=== PATIENT | male | born 1930 | race Caucasian/White ===

== ENCOUNTER 2017-01-28 02:16 | Emergency (ER) | payer MEDICARE, BC ==
[~2017-01-28] VITALS: Ht 162.6 cm; Wt 72.0 kg
[~2017-01-28 02:16] MED LIST: ASPI1TAB69 PO; ATAC16TA4 PO; EFFE10TA PO; MULTTAB67 PO; OMEP40CA2 PO; PLAV75TA29 PO; SIMV40TA PO; TAZT180C PO
[2017-01-28 02:24] VITALS: BP 199/93; PULSE 65; RESP 16; TEMP 98.7; O2SAT 96
[2017-01-28] MEDS ORDERED: SODIUM CHLORIDE 0.9% FLUSH 10 ML FLUSH IVF PRN (02:30)
[2017-01-28] MEDS ORDERED: ATEN50TA7 PO (02:39)
[2017-01-28] MEDS ORDERED: MAGN400T2 PO (02:39)
[2017-01-28] MEDS ORDERED: ASPI81CH37 CHEW (02:39)
[2017-01-28] MEDS ORDERED: ISOS60TA PO (02:39)
[2017-01-28] MEDS ORDERED: VITA100036 PO (02:39)
[2017-01-28 02:47] VITALS: RESP 22; O2SAT 97
[2017-01-28 03:10] LABS: AUTOMATED NEUTROPHIL # 5.5 TH/MM3 (1.8-7.7); BASOPHIL # 0.1 TH/MM3 (0-0.2); BASOPHIL % 0.5 % (0.0-2.0); EOSINOPHIL # 0.3 TH/MM3 (0-0.4); EOSINOPHIL % 2.8 % (0.0-4.0); HEMATOCRIT 39.1 % (39.0-51.0); HEMO FLAGS DIFF FINAL; LYMPHOCYTE # 2.4 TH/MM3 (1.0-4.8); MEAN CELL VOLUME 84.3 FL (80.0-100.0); MEAN CORPUSCULAR HEMOGLOBIN 27.9 PG (27.0-34.0); NEUT % 58.7 % (16.0-70.0); PLATELET COUNT 249 TH/MM3 (150-450); RED BLOOD COUNT 4.63 MIL/MM3 (4.50-5.90); WHITE BLOOD COUNT 9.4 TH/MM3 (4.0-11.0)
[2017-01-28 03:23] LABS: ANION GAP 10 MEQ/L (5-15); BLOOD UREA NITROGEN 11 MG/DL (7-18); CHLORIDE 95 MEQ/L (98-107); GLOMERULAR FILTRATION RATE 73 ML/MIN (>89); POTASSIUM 3.3 MEQ/L (3.5-5.1); SODIUM (NA) 134 MEQ/L (136-145)
--- NOTE | 2017-01-28 03:39 | PD ---
HPI Chief Complaint: Neuro Symptoms/ Deficits Time Seen by Provider: 02:25 Travel History International Travel<30 days: No Contact w/Intl Traveler<30days: No Traveled to known affect area: No History of Present Illness HPI Patient is a 86-year-old male who presents emergency Department with complaint of neuro symptoms. Patient states that he had a TIA approximately one year ago. He had of vertigo with this, difficulty walking. Describes an ataxic type sensation ambulating to the right. Patient has been on Plavix and aspirin since. States he's been doing well. He woke up in the middle the night, approximately midnight to 1 AM try to urinate. Patient states ED he felt "off balance" and describes a sensation similar to his previous TIA. It certainly was not that severity. Patient states that he feels like he wants to lean her walk to the right but has not however had any difficulty walking and no vertigo sensation. No word finding difficulties, speech slurring, or other neurologic deficit. PFSH Past Medical History Arthritis: No Asthma: No Autoimmune Disease: No Anxiety: No Depression: No Heart Rhythm Problems: Yes Cancer: Yes (protate w/ sx) Cardiovascular Problems: Yes (PACERMAKER ) High Cholesterol: Yes Chemotherapy: No Chest Pain: Yes Congestive Heart Failure: No COPD: No Cerebrovascular Accident: No Diabetes: No Diminished Hearing: Yes Endocrine: No Gastrointestinal Disorders: Yes (Ramires's Esophagus) GERD: Yes Genitourinary: Yes Hiatal Hernia: Yes Hypertension: Yes Immune Disorder: No Kidney Stones: No Musculoskeletal: No Neurologic: No Psychiatric: No Reproductive: No Respiratory: No Migraines: No Myocardial Infarction: Yes ("HEART EVENTS") Radiation Therapy: No Renal Failure: No Seizures: No Sickle Cell Disease: No Sleep Apnea: No Thyroid Disease: Yes Ulcer: No Past Surgical History Abdominal Surgery: Yes AICD: No Arteriovenous Shunt: No Body Medical Devices: PACEMAKER Cardiac Surgery: Yes (PACER) Cholecystectomy: Yes Ear Surgery: No Endocrine Surgery: No Eye Surgery: Yes (cat,sx bilateral) Genitourinary Surgery: Yes (prostate sx/ PROSTECTOMY) Insulin Pump: No Joint Replacement: No Oral Surgery: No Pacemaker: Yes Prostatectomy: Yes (2000) Thoracic Surgery: No Other Surgery: Yes (cholecystectomy) Social History Alcohol Use: Yes (DAILY) Tobacco Use: No Substance Use: No Allergies-Medications (Allergen,Severity, Reaction): Coded Allergies: Levaquin (Verified Allergy, Severe, 08/12/16) RAISED BLOOD PRESSURE Penicillin (Verified Allergy, Unknown, 08/12/16) MRI PRECAUTION (Verified Adverse Reaction, Severe, PACEMAKER, 08/12/16) NON REVO PACEMAKER Diovan (Verified Adverse Reaction, Mild, Increased Blood Pressure, 08/12/16 ) Reported Meds & Prescriptions Reported Meds & Active Scripts Active Reported Clonidine (Clonidine HCl) 0.1 Mg Tab 0.1 Mg PO BID Vitamin D3 (Cholecalciferol) 1,000 Unit Cap 1,000 Units PO DAILY Aspirin Low Dose (Aspirin) 81 Mg Chew 81 Mg CHEW DAILY Magnesium Oxide 400 Mg Tab 400 Mg PO DAILY Atenolol-Chlorthalidone 50-25 Mg Tab 1 Tab PO DAILY Isosorbide Mononitrate ER (Isosorbide Mononitrate) 60 Mg Tab 60 Mg PO DAILY Multiple Vitamin 1 Tab 1 Tab PO DAILY Omeprazole 40 Mg Cap 40 Mg PO DAILY Effer-K (Potassium Bicarbonate-Citric Acid) 10 Meq Tab 1 Tab PO DAILY Taztia Xt (Diltiazem ER 24 HR) 180 Mg Caper 180 Mg PO DAILY Simvastatin 40 Mg Tab 40 Mg PO HS Plavix (Clopidogrel Bisulfate) 75 Mg Tab 75 Mg PO DAILY Review of Systems Except as stated in HPI: all other systems reviewed are Neg Physical Exam Narrative GENERAL: Pleasant elderly male in no acute distress SKIN: Focused skin assessment warm/dry. HEAD: Normocephalic. EYES: No scleral icterus. No injection or drainage. ENT: No nasal bleeding or discharge. Mucous membranes pink and moist. NECK: Supple CARDIOVASCULAR: Regular rate and rhythm. No murmur appreciated. RESPIRATORY: No accessory muscle use. Clear to auscultation. Breath sounds equal bilaterally. GASTROINTESTINAL: Abdomen soft, non-tender, nondistended. MUSCULOSKELETAL: No obvious deformities. No edema. NEUROLOGICAL: Awake and alert. No obvious cranial nerve deficits. Motor grossly within normal limits. Normal speech. Normal gait. Patient is unable to do tandem gait, though states he has never been able to do so, no appreciable ataxia on [id number] heel garcia. PSYCHIATRIC: Appropriate mood and affect; insight and judgment normal. Data Data Last Documented VS Vital Signs Date Time Temp Pulse Resp B/P Pulse Ox O2 Delivery O2 Flow Rate FiO2 01/28/17 03:59 61 17 161/71 97 Room Air 01/28/17 02:24 98.7 Orders Electrocardiogram (01/28/17 02:25) Complete Blood Count With Diff (01/28/17 02:25) Basic Metabolic Panel (Bmp) (01/28/17 02:25) Troponin I (01/28/17 02:25) Ct Brain W/O Iv Contrast(Rout) (01/28/17 02:25) Cta Brain W Iv Contrast W 3d (01/28/17 02:25) Cta Neck W Iv Contrast W 3d (01/28/17 02:25) Ecg Monitoring (01/28/17 02:25) Iv Access Insert/Monitor (01/28/17 02:25) Oximetry (01/28/17 02:25) Sodium Chloride 0.9% Flush (Ns Flush) (01/28/17 02:30) Potassium Chloride (Kcl) (01/28/17 03:45) Iohexol 350 Inj (Omnipaque 350 Inj) (01/28/17 03:47) Labs Laboratory Tests Test 01/28/17 02:30 White Blood Count 9.4 TH/MM3 Red Blood Count 4.63 MIL/MM3 Hemoglobin 12.9 GM/DL Hematocrit 39.1 % Mean Corpuscular Volume 84.3 FL Mean Corpuscular Hemoglobin 27.9 PG Mean Corpuscular Hemoglobin 33.0 % Concent Red Cell Distribution Width 14.0 % Platelet Count 249 TH/MM3 Mean Platelet Volume 8.4 FL Neutrophils (%) (Auto) 58.7 % Lymphocytes (%) (Auto) 25.0 % Monocytes (%) (Auto) 13.0 % Eosinophils (%) (Auto) 2.8 % Basophils (%) (Auto) 0.5 % Neutrophils # (Auto) 5.5 TH/MM3 Lymphocytes # (Auto) 2.4 TH/MM3 Monocytes # (Auto) 1.2 TH/MM3 Eosinophils # (Auto) 0.3 TH/MM3 Basophils # (Auto) 0.1 TH/MM3 CBC Comment DIFF FINAL Differential Comment Sodium Level 134 MEQ/L Potassium Level 3.3 MEQ/L Chloride Level 95 MEQ/L Carbon Dioxide Level 29.0 MEQ/L Anion Gap 10 MEQ/L Blood Urea Nitrogen 11 MG/DL Creatinine 0.97 MG/DL Estimat Glomerular Filtration 73 ML/MIN Rate Random Glucose 113 MG/DL Calcium Level 8.8 MG/DL Troponin I LESS THAN 0.02 NG/ML MDM Medical Decision Making Medical Screen Exam Complete: Yes Emergency Medical Condition: Yes Medical Record Reviewed: Yes Differential Diagnosis 86-year-old male with history of previous TIA here with complaint of gait instability, sensation of wanting to walk to the right. Differential includes CVA, TIA, ICH, ataxia, electrolyte abnormality Narrative Course Patient placed on monitor, IV established and blood obtained. A twelve-lead EKG shows electronically paced rhythm. No notable ST abnormalities. CBC, BMP, troponin obtained and notable for potassium 3.3. Replaced with [address] of the brain and CTA of the brain and neck obtained and showed degenerative changes but otherwise no acute abnormalities. Patient was able ambulate in the emergency department independently, feels back to baseline at this time. Question whether he did have another small TIA. He is anticoagulated on Plavix and aspirin and at this point hospital stay would likely not add much to patient 's therapy. This was discussed with him and he would like to go home. I think that this is reasonable. Patient discharged. We'll encourage outpatient primary follow-up. Diagnosis Primary Impression: Ataxia Referrals: Neurologist 1 week Primary Care Physician 1 week Additional Instructions: Continue home medications as prescribed. Follow-up with primary care provider, neurologist as discussed. Med/Other Pt SpecificInfo: No Change to Meds Disposition: 01 DISCHARGE HOME Condition: Stable Smiley Ramirez MD Jan 28, 2017 03:39
[2017-01-28] MEDS ORDERED: POTASSIUM CHLORIDE 20 MEQ CONTROLLED RELEASE TAB PO ONE (03:45)
[2017-01-28] MEDS ORDERED: IOHEXOL 350 MG/ML 10 ML VIAL (for RAD DIAG) IV ONE (03:47)
[2017-01-28 03:59] VITALS: BP 161/71; PULSE 61; RESP 17; O2SAT 97
[2017-01-28] MEDS ORDERED: CLON0.1T PO (04:04)
--- NOTE | 2017-01-28 04:12 | RADRPT ---
EXAM DATE/TIME: 01/28/2017 03:39 [facility] COMPARISON: CT BRAIN W/O CONTRAST, March 07, 2016, 17:10. INDICATIONS : Unstead gait. RADIATION DOSE: 56.35 CTDIvol (mGy) MEDICAL HISTORY : Cerebrovascular disease. Hypertension. Carcinoma, prostate. SURGICAL HISTORY : None. ENCOUNTER: Initial ACUITY: 1 day PAIN SCALE: 0/10 LOCATION: cranial TECHNIQUE: Multiple contiguous axial images were obtained of the head. Using automated exposure control and adj ustment of the mA and/or kV according to patient size, radiation dose was kept as low as reasonably a chievable to obtain optimal diagnostic quality images. DICOM format image data is available electro nically for review and comparison. FINDINGS: There is no evidence of acute cortical infarction, acute hemorrhage, mass effect or midline shift. Bi frontal atrophy is present. Posterior fossa structures are unremarkable. There is benign-appearing mu cosal disease in the right maxillary sinus. CONCLUSION: 1. Frontal atrophy. No evidence of acute intracranial pathology. No masses are identified. Kamran Perez MD on January 28, 2017 at 4:09 Board Certified Radiologist. This report was verified electronically.
--- NOTE | 2017-01-28 05:10 | RADRPT ---
EXAM DATE/TIME: 01/28/2017 03:39 [facility] COMPARISON: CTA BRAIN W 3D RECON, March 06, 2016, 12:40. INDICATIONS : Unsteady gait. IV CONTRAST: 80 cc Omnipaque 350 (iohexol) IV ; Cumulative dose for multiple exams. RADIATION DOSE: 15.97 CTDIvol (mGy) ; Combined studies MEDICAL HISTORY : Cerebrovascular disease. Hypertension. Carcinoma, prostate. SURGICAL HISTORY : None. ENCOUNTER: Initial ACUITY: 1 day PAIN SCALE: 0/10 LOCATION: cranial TECHNIQUE: Volumetric scanning was performed using a multi-row detector CT scanner. The data was post processed with a variety of visualization algorithms including full volume maximum intensity projection, multi -planar sliding thin slab reformation, curved planar reformation, and surface rendering techniques. Using automated exposure control and adjustment of the mA and/or kV according to patient size, radiat ion dose was kept as low as reasonably achievable to obtain optimal diagnostic quality images. DICO M format image data is available electronically for review and comparison. FINDINGS: There is excellent visualization of the major intracranial arteries out to the second-order branch ve ssels. There is no evidence for aneurysm, vessel truncation or stenosis, and no evidence for vascula r malformation. Examination of posterior fossa also demonstrates no evidence of aneurysm or vascular malformation. Th e vertebral arteries are codominant. CONCLUSION: 1. Unremarkable CT angiography of the brain. Kamran Perez MD on January 28, 2017 at 5:00 Board Certified Radiologist. This report was verified electronically.
--- NOTE | 2017-01-28 05:11 | RADRPT ---
EXAM DATE/TIME: 01/28/2017 03:39 [facility] COMPARISON: CTA CAROTID ARTERIES W 3D RECON, March 06, 2016, 12:40. INDICATIONS : Unsteady gait. IV CONTRAST: 80 cc Omnipaque 350 (iohexol) IV ; Cumulative dose for multiple exams. RADIATION DOSE: 15.97 CTDIvol (mGy) ; Combined studies MEDICAL HISTORY : Cerebrovascular disease. Hypertension. Carcinoma, prostate. SURGICAL HISTORY : None. ENCOUNTER: Initial ACUITY: 1 day PAIN SCALE: 0/10 LOCATION: neck Elevated flow velocities and ICA/CCA ratios have been found to correlate with increased degrees of vessel stenosis, calculated as percentage of diameter relative to a normal segment of distal ICA/CCA. TECHNIQUE: Volumetric scanning was performed using a multirow detector CT scanner. The data was post processed with a variety of visualization algorithms including full-volume maximum intensity projection, multip lanar sliding thin-slab reformation, curved-planar reformation, and surface-rendering techniques. Us ing automated exposure control and adjustment of the mA and/or kV according to patient size, radiatio n dose was kept as low as reasonably achievable to obtain optimal diagnostic quality images. DICOM f ormat image data is available electronically for review and comparison. FINDINGS: AORTIC ARCH: There is a three-vessel origin of the great vessels from the aorta. No evidence of ostial narrowing. RIGHT CAROTID: The common carotid artery is intact. The carotid bulb has a normal configuration without ulceration o r narrowing. The internal carotid artery lumen is smooth without stenosis. The external carotid pedro ry is intact. LEFT CAROTID: The common carotid artery is intact. The carotid bulb has a normal configuration without ulceration or narrowing. The internal carotid artery lumen is smooth without stenosis. The external carotid ar cherelle is intact. VERTEBRALS: The vertebral arteries have a symmetric diameter. No stenotic lesions are seen. CONCLUSION: 1. There is 0-10% stenosis bilaterally. No evidence of hemodynamically significant lesion. Kamran Perez MD on January 28, 2017 at 5:08 Board Certified Radiologist. This report was verified electronically.
[2017-01-28 05:20] VITALS: BP 170/77; PULSE 60; RESP 16; O2SAT 95
--- NOTE | 2017-01-28 14:01 | EKG ---
Date Performed: 01/28/2017 Time Performed: 02:25:49 PTAGE: 86 years EKG: ELECTRONIC ATRIAL PACEMAKER BORDERLINE LEFT AXIS DEVIATION MODERATE T-WAVE ABNORMALITY, CON PET NUTRITION SPECIALIST ANTEROLATERAL ISCHEMIA Compared to previous tracing, PVCs are now present. There is now eviden ce of some atrial pacing. ABNORMAL ECG PREVIOUS TRACING : 03/06/2016 17.34 DOCTOR: Elena Jara Interpretating Date/Time 01/28/2017 13:59:15
== END 2017-01-28 06:29 | disposition home or self-care (01) ==
LOC: NEPE 02:16
DX: R27.0 Ataxia, unspecified (principal); E78.00 Pure hypercholesterolemia, unspecified; K21.9 Gastro-esophageal reflux disease without esophagitis; I10 Essential (primary) hypertension; I21.3 ST elevation (STEMI) myocardial infarction of unspecified site; E07.9 Disorder of thyroid, unspecified; R94.31 Abnormal electrocardiogram [ECG] [EKG]; I49.3 Ventricular premature depolarization; Z86.73 Personal history of transient ischemic attack (TIA), and cerebral infarction without residual deficits
CPT/HCPCS: 70450; 70496; 70498; 80048; 84484; 85025; 93005; 99285; Q9967

== ENCOUNTER 2017-10-21 06:08 | Inpatient (IN) | payer MEDICARE, BC ==
[~2017-10-21] VITALS: Ht 165.1 cm; Wt 72.9 kg
[2017-10-21] VITALS (12 sets, daily range): BP systolic 150–185; BP diastolic 60–82; PULSE 59–75; RESP 16–20; TEMP 96.2–97.8; O2SAT 96–100
[~2017-10-21 06:08] MED LIST changes: -ASPI1TAB69 PO; +ASPI81CH6 CHEW; -ATAC16TA4 PO; +ATEN50TA7 PO; +CHOL10008 PO; +CLON0.1T PO; +ISOS60TA PO; +MAGN400T2 PO
[2017-10-21] MEDS ORDERED: VITATAB11 PO (06:20)
[2017-10-21] MEDS ORDERED: POTA10CA PO (06:20)
[2017-10-21] MEDS ORDERED: ASPIRIN 81 MG CHEW TAB PO ONE (06:45)
[2017-10-21] MEDS ORDERED: SODIUM CHLORIDE 0.9% FLUSH 10 ML FLUSH IVF PRN (06:45)
--- NOTE | 2017-10-21 06:50 | PD ---
HPI Chief Complaint: Chest Pain Time Seen by Provider: 06:20 Travel History International Travel<30 days: No Contact w/Intl Traveler<30days: No Traveled to known affect area: No History of Present Illness HPI The patient is a 87-year-old male who presents to the emergency department for chest pain. The patient states he awakened at 4 AM to use the bathroom. When he was walking back to the bed he developed anterior, substernal chest pressure and diaphoresis. The patient states the symptoms lasted for approximately 20 minutes and then resolved on its own. However, shortly thereafter, he developed once again substernal chest pressure. The chest pressure was nonradiating, associated with diaphoresis, but there was no shortness of breath, nausea, vomiting, or impending doom. The patient does have a history of similar symptoms in 2011 and underwent 2 cardiac catheterizations, however, no stents were placed. Patient thinks it may have been secondary to coronary vasospasm. The patient's route vending machine servicer is Dr. Mustafa. The patient's primary physician is Dr. House. The patient also states he was recently diagnosed with diverticulitis and is currently taking Levaquin and hydrocodone. PFSH Past Medical History Hx Anticoagulant Therapy: Yes (plavix) Arthritis: No Asthma: No Autoimmune Disease: No Anxiety: No Depression: No Heart Rhythm Problems: Yes Cancer: Yes (protate w/ sx) Cardiovascular Problems: Yes (PACERMAKER, [place], HTN) High Cholesterol: Yes Chemotherapy: No Chest Pain: Yes Congestive Heart Failure: No COPD: No Cerebrovascular Accident: No Diabetes: No Diminished Hearing: Yes Endocrine: No Gastrointestinal Disorders: Yes (Ramires's Esophagus) GERD: Yes Genitourinary: Yes Hiatal Hernia: Yes Hypertension: Yes Immune Disorder: No Kidney Stones: No Musculoskeletal: No Neurologic: No Psychiatric: No Reproductive: No Respiratory: No Migraines: No Myocardial Infarction: Yes ("HEART EVENTS") Radiation Therapy: No Renal Failure: No Seizures: No Sickle Cell Disease: No Sleep Apnea: No Thyroid Disease: Yes Ulcer: No Tetanus Vaccination: Unknown Influenza Vaccination: Yes Past Surgical History Abdominal Surgery: Yes AICD: No Arteriovenous Shunt: No Body Medical Devices: PACEMAKER Cardiac Surgery: Yes (PACER) Cholecystectomy: Yes Ear Surgery: No Endocrine Surgery: No Eye Surgery: Yes (cat,sx bilateral) Genitourinary Surgery: Yes (prostate sx/ PROSTECTOMY) Insulin Pump: No Joint Replacement: No Oral Surgery: No Pacemaker: Yes Prostatectomy: Yes (2000) Thoracic Surgery: No Other Surgery: Yes (cholecystectomy) Social History Alcohol Use: Yes (DAILY) Tobacco Use: No Substance Use: No Allergies-Medications (Allergen,Severity, Reaction): Coded Allergies: levofloxacin (Unverified Allergy, Severe, 10/21/17) RAISED BLOOD PRESSURE penicillin G (Unverified Allergy, Unknown, 10/21/17) MRI PRECAUTION (Verified Adverse Reaction, Severe, PACEMAKER, 10/21/17) NON REVO PACEMAKER valsartan (Unverified Adverse Reaction, Mild, Increased Blood Pressure, ) Reported Meds & Prescriptions Reported Meds & Active Scripts Active Reported Potassium Chloride ER (Potassium Chloride) 10 Meq Cap 10 Meq PO BID Vitamin B Complex (B-Complex Vitamins) 1 Tab 1 Tab PO DAILY Vitamin D3 (Cholecalciferol) 1,000 Unit Cap 1,000 Units PO DAILY Aspirin Low Dose (Aspirin) 81 Mg Chew 81 Mg CHEW DAILY Magnesium Oxide 400 Mg Tab 400 Mg PO DAILY Atenolol-Chlorthalidone 50-25 Mg Tab 1 Tab PO DAILY Isosorbide Mononitrate ER (Isosorbide Mononitrate) 60 Mg Tab 60 Mg PO DAILY Multiple Vitamin 1 Tab 1 Tab PO DAILY Omeprazole 40 Mg Cap 40 Mg PO DAILY Taztia Xt (Diltiazem ER 24 HR) 180 Mg Caper 180 Mg PO DAILY Simvastatin 40 Mg Tab 40 Mg PO HS Plavix (Clopidogrel Bisulfate) 75 Mg Tab 75 Mg PO DAILY Review of Systems Except as stated in HPI: all other systems reviewed are Neg General / Constitutional: No: Fever HENT: No: Lightheadedness Cardiovascular: Positive: Chest Pain or Discomfort, Diaphoresis Respiratory: No: Shortness of Breath Gastrointestinal: No: Nausea, Vomiting, Abdominal Pain Musculoskeletal: No: Weakness Neurologic: No: Dizziness Physical Exam Narrative GENERAL: Awake, alert, pleasant 87-year-old male who appears his stated age and is in no acute respiratory distress. SKIN: Focused skin assessment warm/dry. HEAD: Atraumatic. Normocephalic. EYES: Pupils equal and round. No scleral icterus. No injection or drainage. ENT: No nasal bleeding or discharge. Mucous membranes pink and moist. NECK: Trachea midline. No JVD. CARDIOVASCULAR: Regular rate and rhythm. No murmur appreciated. Pacemaker in place left chest wall. RESPIRATORY: No accessory muscle use. Clear to auscultation. Breath sounds equal bilaterally. GASTROINTESTINAL: Abdomen soft, non-tender, nondistended. No rebound tenderness. MUSCULOSKELETAL: No obvious deformities. No clubbing. No cyanosis. No edema. NEUROLOGICAL: Awake and alert. No obvious cranial nerve deficits. Motor grossly within normal limits. Normal speech. PSYCHIATRIC: Appropriate mood and affect; insight and judgment normal. Data Data Last Documented VS Vital Signs Date Time Temp Pulse Resp B/P (MAP) Pulse Ox O2 Delivery O2 Flow Rate FiO2 10/21/17 06:36 98 Room Air 10/21/17 06:29 61 16 10/21/17 06:10 97.6 185/82 (116) Orders Orders Ckmb (Isoenzyme) Profile (10/21/17 06:34) Complete Blood Count With Diff (10/21/17 06:34) Comprehensive Metabolic Panel (10/21/17 06:34) Magnesium (Mg) (10/21/17 06:34) Prothrombin Time / Inr (Pt) (10/21/17 06:34) Act Partial Throm Time (Ptt) (10/21/17 06:34) Troponin I (10/21/17 06:34) Chest, Single Ap (10/21/17 06:34) Ecg Monitoring (10/21/17 06:34) Bilateral Bp Monitoring (10/21/17 06:34) Iv Access Insert/Monitor (10/21/17 06:34) Oximetry (10/21/17 06:34) Oxygen Administration (10/21/17 06:34) Aspirin Chew (Aspirin Chew) (10/21/17 06:45) Sodium Chloride 0.9% Flush (Ns Flush) (10/21/17 06:45) MDM Medical Decision Making Medical Screen Exam Complete: Yes Emergency Medical Condition: Yes Medical Record Reviewed: Yes Interpretation(s) EKG reveals electronic atrial and ventricular pacemaker. Inverted T waves noted in lead V3 through V6. No significant changes compared to EKG performed on January 28, 2017 except there are no longer PVCs noted. Differential Diagnosis Differential diagnosis includes Prinzmetal angina, coronary vasospasm, ACS, GERD , esophageal spasm, hypertensive urgency, hypertensive emergency, gastritis, peptic ulcer disease. Narrative Course IV was established, labs are drawn and sent, and the patient was placed on cardiac telemetry monitoring and continuous pulse oximetry monitoring. EKG was ordered and interpreted. Chest x-ray was obtained. The patient was administered aspirin 162 mg orally. I reviewed the patient's EMR, he underwent 2 cardiac catheterizations in 2011, [address] Cutler [address] Mustafa. The patient had mild to moderate disease at that time but no stents were placed, I did review Dr. Cutler's note that it possibly could have been related to coronary vasospasm. The patient was signed out to the oncoming physician at 7 AM. If initial troponin is negative I believe it is reasonable to place the patient had a chest pain center for serial cardiac enzymes and further evaluation by cardiology. Diagnosis Primary Impression: Chest pain Qualified Codes: R07.9 - Chest pain, unspecified Condition: Stable Eliecer Patricio MD Oct 21, 2017 06:50
[2017-10-21 06:52] LABS: AUTOMATED NEUTROPHIL # 7.2 TH/MM3 (1.8-7.7); BASOPHIL % 0.4 % (0.0-2.0); EOSINOPHIL # 0.1 TH/MM3 (0-0.4); EOSINOPHIL % 1.2 % (0.0-4.0); HEMOGLOBIN 11.3 GM/DL (13.0-17.0); LYMPH % 13.5 % (9.0-44.0); LYMPHOCYTE # 1.3 TH/MM3 (1.0-4.8); MEAN CORPUSCULAR HEMOGLOBIN 24.3 PG (27.0-34.0); MEAN CORPUSCULAR HGB CONC 32.4 % (32.0-36.0); MEAN PLATELET VOLUME 8.3 FL (7.0-11.0); MONO % 10.3 % (0.0-8.0); NEUT % 74.6 % (16.0-70.0); PLATELET COUNT 263 TH/MM3 (150-450); RED BLOOD COUNT 4.66 MIL/MM3 (4.50-5.90); RED CELL DISTRIBUTION WIDTH 16.7 % (11.6-17.2); WHITE BLOOD COUNT 9.6 TH/MM3 (4.0-11.0)
--- NOTE | 2017-10-21 07:05 | RADRPT ---
EXAM DATE/TIME: 10/21/2017 06:41 [facility] COMPARISON: No previous studies available for comparison. INDICATIONS : Chest pain that resolved. MEDICAL HISTORY : Hypertension. SURGICAL HISTORY : Pacemaker. ENCOUNTER: Initial ACUITY: 1 day PAIN SCORE: 10 LOCATION: Bilateral chest FINDINGS: A single view of the chest demonstrates the lungs to be symmetrically aerated without evidence of mas s, infiltrate or effusion. The cardiomediastinal contours are unremarkable. Osseous structures are intact. Pacer device from a left subclavian transvenous approach. CONCLUSION: No acute disease. Gurvinder Mcdonough MD on October 21, 2017 at 7:02 Board Certified Radiologist. This report was verified electronically.
[2017-10-21 07:07] LABS: ALBUMIN 3.8 GM/DL (3.4-5.0); ALT (GPT) 22 U/L (12-78); AST (GOT) 19 U/L (15-37); BICARBONATE 26.7 MEQ/L (21.0-32.0); BLOOD UREA NITROGEN 15 MG/DL (7-18); CALCIUM 8.9 MG/DL (8.5-10.1); CHLORIDE 97 MEQ/L (98-107); CREATININE 1.09 MG/DL (0.60-1.30); GLOMERULAR FILTRATION RATE 64 ML/MIN (>89); GLUCOSE,RANDOM 117 MG/DL (74-106); MAGNESIUM 1.8 MG/DL (1.5-2.5); SODIUM (NA) 135 MEQ/L (136-145)
[2017-10-21 07:11] LABS: ALKALINE PHOSPHATASE 50 U/L (45-117); TOTAL BILIRUBIN ADULT 0.6 MG/DL (0.2-1.0); TOTAL PROTEIN 7.4 GM/DL (6.4-8.2); TROPONIN I LESS THAN 0.02 NG/ML (0.02-0.05)
--- NOTE | 2017-10-21 07:48 | PD ---
Physical Exam Narrative Patient was seen by ED physician and signed out to me. Data Data Last Documented VS Vital Signs Date Time Temp Pulse Resp B/P (MAP) Pulse Ox O2 Delivery O2 Flow Rate FiO2 10/21/17 06:36 98 Room Air 10/21/17 06:29 61 16 10/21/17 06:10 97.6 185/82 (116) Orders Orders Ckmb (Isoenzyme) Profile (10/21/17 06:34) Complete Blood Count With Diff (10/21/17 06:34) Comprehensive Metabolic Panel (10/21/17 06:34) Magnesium (Mg) (10/21/17 06:34) Prothrombin Time / Inr (Pt) (10/21/17 06:34) Act Partial Throm Time (Ptt) (10/21/17 06:34) Troponin I (10/21/17 06:34) Chest, Single Ap (10/21/17 06:34) Ecg Monitoring (10/21/17 06:34) Bilateral Bp Monitoring (10/21/17 06:34) Iv Access Insert/Monitor (10/21/17 06:34) Oximetry (10/21/17 06:34) Oxygen Administration (10/21/17 06:34) Aspirin Chew (Aspirin Chew) (10/21/17 06:45) Sodium Chloride 0.9% Flush (Ns Flush) (10/21/17 06:45) Electrocardiogram (10/21/17 06:08) Admit Order (Ed Use Only) (10/21/17 07:54) Potassium Chloride (Kcl) (10/21/17 08:00) Activity Bed Rest With Brp (10/21/17 07:56) Vital Signs (Adult) Q4H (10/21/17 07:56) Cardiac Rhythm .As Directed (10/21/17 07:56) Notify Dr: Other .PRN (10/21/17 07:56) Notify . Parameters (10/21/17 07:56) Resp Oxygen Nasal Cannula (10/21/17 ) Diet Npo (10/21/17 Breakfast) Ckmb (Isoenzyme) Profile (10/21/17 09:40) Ckmb (Isoenzyme) Profile (10/21/17 12:40) Troponin I (10/21/17 09:40) Troponin I (10/21/17 12:40) Electrocardiogram (10/21/17 09:40) Electrocardiogram (10/21/17 12:40) ^ Obtain (10/21/17 07:56) Sodium Chloride 0.9% Flush (Ns Flush) (10/21/17 08:00) Sodium Chloride 0.9% Flush (Ns Flush) (10/21/17 09:00) Acetaminophen (Tylenol) (10/21/17 08:00) Ondansetron Inj (Zofran Inj) (10/21/17 08:00) Primary Teacher / Telemetry ALAN.Q8H (10/21/17 07:56) Labs Laboratory Tests Test 10/21/17 06:40 White Blood Count 9.6 TH/MM3 Red Blood Count 4.66 MIL/MM3 Hemoglobin 11.3 GM/DL Hematocrit 35.0 % Mean Corpuscular Volume 75.0 FL Mean Corpuscular Hemoglobin 24.3 PG Mean Corpuscular Hemoglobin Concent 32.4 % Red Cell Distribution Width 16.7 % Platelet Count 263 TH/MM3 Mean Platelet Volume 8.3 FL Neutrophils (%) (Auto) 74.6 % Lymphocytes (%) (Auto) 13.5 % Monocytes (%) (Auto) 10.3 % Eosinophils (%) (Auto) 1.2 % Basophils (%) (Auto) 0.4 % Neutrophils # (Auto) 7.2 TH/MM3 Lymphocytes # (Auto) 1.3 TH/MM3 Monocytes # (Auto) 1.0 TH/MM3 Eosinophils # (Auto) 0.1 TH/MM3 Basophils # (Auto) 0.0 TH/MM3 CBC Comment DIFF FINAL Differential Comment Blood Urea Nitrogen 15 MG/DL Creatinine 1.09 MG/DL Random Glucose 117 MG/DL Total Protein 7.4 GM/DL Albumin 3.8 GM/DL Calcium Level 8.9 MG/DL Magnesium Level 1.8 MG/DL Alkaline Phosphatase 50 U/L Aspartate Amino Transf (AST/SGOT) 19 U/L Alanine Aminotransferase (ALT/SGPT) 22 U/L Total Bilirubin 0.6 MG/DL Sodium Level 135 MEQ/L Potassium Level 3.2 MEQ/L Chloride Level 97 MEQ/L Carbon Dioxide Level 26.7 MEQ/L Anion Gap 11 MEQ/L Estimat Glomerular Filtration Rate 64 ML/MIN Total Creatine Kinase 79 U/L Troponin I LESS THAN 0.02 NG/ML MDM Supervised Visit with PAULINA: No Interpretation(s) Last Impressions Chest X-Ray 10/21/17 0634 Signed Impressions: Service Date/Time: Saturday, October 21, 2017 06:41 - CONCLUSION: No acute disease. Gurvinder Mcdonough MD 7:47 AM. EKG shows paced rhythm with T-wave inversion in lead I, 2, 3, aVF, V1 through V6. CBC within normal limits. Sodium 135. Potassium 3.2. GFR 64. Cardiac enzymes are normal. Narrative Course KCl 40 mEq p.o. given. Patient will be admitted to the chest pain center. Diagnosis Primary Impression: Chest pain Qualified Codes: R07.9 - Chest pain, unspecified Additional Impression: Hypokalemia Admitting Information Admitting Physician Requests: Observation Condition: Stable Hieu Sandhu MD Oct 21, 2017 07:48
[2017-10-21] MEDS ORDERED: POTASSIUM CHLORIDE 20 MEQ CONTROLLED RELEASE TAB PO ONE (08:00)
[2017-10-21] MEDS ORDERED: SODIUM CHLORIDE 0.9% FLUSH 10 ML FLUSH IV FLUSH PRN ×2 (08:00→16:00)
[2017-10-21] MEDS ORDERED: ACETAMINOPHEN 500 MG CPLT PO PRN (08:00)
[2017-10-21] MEDS ORDERED: ONDANSETRON HCL 4 MG/2 ML VIAL IV PUSH PRN (08:00)
[2017-10-21] MEDS ORDERED: NITROGLYCERIN 2% OINT 1 GM PACKET TOPICAL ONE (08:45)
[2017-10-21] MEDS ORDERED: SODIUM CHLORIDE 0.9% FLUSH 10 ML FLUSH IV FLUSH SCH (09:00)
[2017-10-21 09:42] LABS: INTERNATIONAL NORMALIZED RATIO 1.1 RATIO; PROTHROMBIN TIME - PATIENT 10.9 SEC (9.8-11.6)
[2017-10-21 10:10] LABS: TROPONIN I 0.02 NG/ML (0.02-0.05)
--- NOTE | 2017-10-21 10:18 | EKG ---
Date Performed: 10/21/2017 Time Performed: 06:08:25 PTAGE: 87 years EKG: ELECTRONIC ATRIAL PACEMAKER ELECTRONIC VENTRICULAR PACEMAKER ABNORMAL RHYTHM ECG NO PREVIOUS TRACING DOCTOR: Venu Shepard Interpretating Date/Time 10/21/2017 10:17:05
[2017-10-21] MEDS: PANTOPRAZOLE SOD 40 MG DELAYED RELEASE TAB PO SCH (11:45)
[2017-10-21] MEDS: CLOPIDOGREL 75 MG TAB PO SCH (11:45)
--- NOTE | 2017-10-21 11:50 | HHI.HP ---
[facility] Primary Care Physician Pieter House M.D. Chief Complaint Chest pain History of Present Illness This is an 87-year-old male with history of CAD without stenting, hypertension, hyperlipidemia, diverticulitis, pacemaker that presents to the ED via [facility] with a complaint of developing discomfort in his chest while going to the bathroom 4: 00 this morning. He describes a central chest pressure with diaphoresis that lasted 20 minutes. He then went to lay down in bed. And then about 30 minutes later reoccurred again also lasting about 15-20 minutes. At that point he decided to call [facility]. He states the discomfort was resolved before [facility] came to his house. He was not short of breath or nauseous. He also states that recently was seen by his host hostess for lower abdominal discomfort and was placed on Levaquin bleeding is related to a flareup of diverticulitis. States that the symptoms are improved. No nausea, vomiting, diarrhea, blood in stool. Denies fevers. Review of Systems General: Patient denies fevers, chills, and recent travel. HEENT: Patient denies headache, sore throat, difficulty swallowing. Cardiovascular: Has the chest discomfort as mentioned above. Denies sensation of heart beating rapidly or irregularly. No syncope. He was diaphoretic. Respiratory: Denies shortness of breath or inspirational chest discomfort. Denies coughing wheezing or hemoptysis. GI: About a week ago he started having lower abdominal pain. Was seen by his host hostess and placed on Levaquin for presumably diverticulitis, states he is feeling better. A little bit of discomfort but nowhere near as bad. Patient denies nausea, vomiting, diarrhea, constipation, abdominal pain, bloody stools. Musculoskeletal: Patient denies joint pain or edema. Denies calf pain or edema. Neurovascular: Patient denies numbness, tingling, weakness in extremities. Denies headache. Endocrine: Denies polyuria and polydipsia. Hematologic: Denies easy bruising. Skin: Denies rash or itching. Past Family Social History Allergies: Coded Allergies: levofloxacin (Unverified Allergy, Severe, 10/21/17) RAISED BLOOD PRESSURE penicillin G (Unverified Allergy, Unknown, 10/21/17) MRI PRECAUTION (Verified Adverse Reaction, Severe, PACEMAKER, 10/21/17) NON REVO PACEMAKER valsartan (Unverified Adverse Reaction, Mild, Increased Blood Pressure, ) Past Medical History CAD via heart catheterization in 2012 without stenting. Pacemaker in 2012. Hypertension, hyperlipidemia, diverticulitis. Past Surgical History Pacemaker placed in 2012. He had a heart catheterization revealing 2030% disease in the midsegment of the circumflex, 10-20% disease in the mid segment of LAD, and 10-20% disease in the distal segment of the RCA. He had a repeat of that heart catheterization 2 days later in 2011 with similar findings however there is note made by the marketing developer that the staff believes that the vessels were larger from the heart catheterization 2 days prior and believe is related to the Imdur that was added. Reported Medications Reported Meds & Active Scripts Active Reported Potassium Chloride ER (Potassium Chloride) 10 Meq Cap 10 Meq PO BID Vitamin B Complex (B-Complex Vitamins) 1 Tab 1 Tab PO DAILY Vitamin D3 (Cholecalciferol) 1,000 Unit Cap 1,000 Units PO DAILY Aspirin Low Dose (Aspirin) 81 Mg Chew 81 Mg CHEW DAILY Magnesium Oxide 400 Mg Tab 400 Mg PO DAILY Atenolol-Chlorthalidone 50-25 Mg Tab 1 Tab PO DAILY Isosorbide Mononitrate ER (Isosorbide Mononitrate) 60 Mg Tab 60 Mg PO DAILY Multiple Vitamin 1 Tab 1 Tab PO DAILY Omeprazole 40 Mg Cap 40 Mg PO DAILY Taztia Xt (Diltiazem ER 24 HR) 180 Mg Caper 180 Mg PO DAILY Simvastatin 40 Mg Tab 40 Mg PO HS Plavix (Clopidogrel Bisulfate) 75 Mg Tab 75 Mg PO DAILY Active Ordered Medications Current Medications Medications (Trade) Dose Ordered Sig/Camille Route Start Time Stop Time Status Last Admin (NS Flush) 2 ml UNSCH PRN IV FLUSH 10/21/17 08:00 (NS Flush) 2 ml BID IV FLUSH 10/21/17 09:00 10/21/17 08:48 (Tylenol) 500 mg Q4H PRN PO 10/21/17 08:00 (Zofran Inj) 4 mg Q6H PRN IV PUSH 10/21/17 08:00 (Tenoretic 50-25 Mg) 1 tab DAILY PO 10/22/17 09:00 (Plavix) 75 mg DAILY PO 10/21/17 11:30 (Cardizem Cd) 180 mg DAILY PO 10/22/17 09:00 (Imdur) 60 mg DAILY PO 10/22/17 09:00 (Mag-Ox) 400 mg DAILY PO 10/22/17 09:00 (KCl) 10 meq BID PO 10/21/17 21:00 (Protonix) 40 mg DAILY PO 10/21/17 11:30 (Pravachol) 80 mg HS PO 10/21/17 21:00 Family History States his mother age 79 of a myocardial infarction. Social History Quit smoking in the 1950s. Prior to that he smoked maybe a pack of cigarettes a day for 10 years. He has an average 1 beer per day. Denies illicit drugs. 63 years. Physical Exam Vital Signs Vital Signs Date Time Temp Pulse Resp B/P (MAP) Pulse Ox O2 Delivery O2 Flow Rate FiO2 10/21/17 11:22 61 10/21/17 09:30 96.3 60 20 160/72 (101) 98 10/21/17 08:36 64 16 167/79 (108) 100 Room Air 10/21/17 06:36 98 Room Air 10/21/17 06:36 98 Room Air 10/21/17 06:29 61 16 98 Room Air 10/21/17 06:10 97.6 60 20 185/82 (116) 99 Physical Exam GENERAL: This is a well-nourished, well-developed patient, in no apparent distress. Patient speaks in clear complete sentences. Patient is pleasant. HEENT: Head is atraumatic and normocephalic. Neck is supple without lymphadenopathy and trachea is midline. No JVD or carotid bruits. CARDIOVASCULAR: Regular rate and rhythm without murmurs, gallops, or rubs. RESPIRATORY: Clear to auscultation. Breath sounds equal bilaterally. No wheezes , rales, or rhonchi. Chest wall is nontender. No use of accessory muscles. GASTROINTESTINAL: Abdomen is nontender, nondistended. Abdomen soft. No obvious pulsatile mass or bruit. No CVA tenderness. Strong femoral pulses bilaterally. Normal bowel sounds in all quadrants. MUSCULOSKELETAL: Patient is moving upper and lower extremities freely. No calf tenderness or edema, no Homans sign. Strong pulses in upper and lower extremities. NEUROLOGICAL: Patient is alert and oriented. Cranial nerves 2-12 are grossly intact. No focal deficits and speech is clear. SKIN: No rash and turgor is normal. Laboratory Laboratory Tests Test 10/21/17 06:40 10/21/17 09:15 10/21/17 09:25 White Blood Count 9.6 Red Blood Count 4.66 Hemoglobin 11.3 Hematocrit 35.0 Mean Corpuscular Volume 75.0 Mean Corpuscular Hemoglobin 24.3 Mean Corpuscular Hemoglobin Concent 32.4 Red Cell Distribution Width 16.7 Platelet Count 263 Mean Platelet Volume 8.3 Neutrophils (%) (Auto) 74.6 Lymphocytes (%) (Auto) 13.5 Monocytes (%) (Auto) 10.3 Eosinophils (%) (Auto) 1.2 Basophils (%) (Auto) 0.4 Neutrophils # (Auto) 7.2 Lymphocytes # (Auto) 1.3 Monocytes # (Auto) 1.0 Eosinophils # (Auto) 0.1 Basophils # (Auto) 0.0 CBC Comment DIFF FINAL Differential Comment Blood Urea Nitrogen 15 Creatinine 1.09 Random Glucose 117 Total Protein 7.4 Albumin 3.8 Calcium Level 8.9 Magnesium Level 1.8 Alkaline Phosphatase 50 Aspartate Amino Transf (AST/SGOT) 19 Alanine Aminotransferase (ALT/SGPT) 22 Total Bilirubin 0.6 Sodium Level 135 Potassium Level 3.2 Chloride Level 97 Carbon Dioxide Level 26.7 Anion Gap 11 Estimat Glomerular Filtration Rate 64 Total Creatine Kinase 79 71 Troponin I LESS THAN 0.02 0.02 Prothrombin Time 10.9 Prothromb Time International Ratio 1.1 Activated Partial Thromboplast Time 24.9 Result Diagram: 10/21/1740 10/21/17 0640 Imaging Last 48 hours Impressions Chest X-Ray 10/21/17 0634 Signed Impressions: Service Date/Time: Saturday, October 21, 2017 06:41 - CONCLUSION: No acute disease. Gurvinder Mcdonough MD Course EKGs are atrial and ventricular paced. Caprini VTE Risk Assessment Caprini VTE Risk Assessment: Mod/High Risk (score >= 2) Caprini Risk Assessment Model Point Value = 1 Point Value = 2 Point Value = 3 Point Value = 5 Age 41-60 Minor surgery BMI > 25 kg/m2 Swollen legs Varicose veins or History of unexplained or recurrent spontaneous Oral contraceptives or hormone replacement Sepsis (< 1 month) Serious lung disease, including pneumonia (< 1 month) Abnormal pulmonary function Acute myocardial infarction Congestive heart failure (< 1 month) History of inflammatory bowel disease Medical patient at bed rest Age 61-74 Arthroscopic surgery Major open surgery (> 45 min) Laparoscopic surgery (> 45 min) Malignancy Confined to bed (> 72 hours) Immobilizing plaster cast Central venous access Age >= 75 History of VTE Family history of VTE Factor V Leiden Prothrombin [id number] Lupus anticoagulant Anticardiolipin antibodies Elevated serum homocysteine Heparin-induced thrombocytopenia Other congenital or acquired thrombophilia Stroke (< 1 month) Elective arthroplasty Hip, pelvis, or leg fracture Acute spinal cord injury (< 1 month) Prophylaxis Regimen Total Risk Factor Score Risk Level Prophylaxis Regimen 0-1 Low Early ambulation 2 Moderate Order ONE of the following: *Sequential Compression Device (SCD) *Heparin 5000 units SQ BID 3-4 Higher Order ONE of the following medications: *Heparin 5000 units SQ TID *Enoxaparin/Lovenox 40 mg SQ daily (WT < 150 kg, CrCl > 30 mL/min) *Enoxaparin/Lovenox 30 mg SQ daily (WT < 150 kg, CrCl > 10-29 mL/min) *Enoxaparin/Lovenox 30 mg SQ BID (WT < 150 kg, CrCl > 30 mL/min) AND/OR *Sequential Compression Device (SCD) 5 or more Highest Order ONE of the following medications: *Heparin 5000 units SQ TID (Preferred with Epidurals) *Enoxaparin/Lovenox 40 mg SQ daily (WT < 150 kg, CrCl > 30 mL/min) *Enoxaparin/Lovenox 30 mg SQ daily (WT < 150 kg, CrCl > 10-29 mL/min) *Enoxaparin/Lovenox 30 mg SQ BID (WT < 150 kg, CrCl > 30 mL/min) AND *Sequential Compression Device (SCD) Assessment and Plan Assessment and Plan * Seen by Dr. Calvert of cardiology in the chest pain center. He will undergo a Lexiscan. He will be discharged home if the stress test is nonischemic with instructions to follow-up with PCP and his marketing developer. Return to ED for interval issues. * CAD: Patient has history of CAD via heart catheterization in 2011 at which time he was a non-STEMI. We will resume his medications. This will be reassessed with stress testing and he will follow-up with his marketing developer. * Pacemaker: Patient to continue follow-up with his marketing developer. * Hypertension: Continue medications. * Hyperlipidemia: We will resume his medication. * History of diverticulitis: His GI physician placed him on Levaquin about a week ago and he states he is feeling better. * Hypokalemia: Patient was given potassium supplementation. Patient is stable at this time. He is agreeable to this plan. aThir Friedman Oct 21, 2017 11:50
[2017-10-21] MEDS ORDERED: REGADENOSON INJ 0.4 MG/5 ML SYR ONE (13:19)
--- NOTE | 2017-10-21 14:10 | EKG ---
Date Performed: 10/21/2017 Time Performed: 11:33:20 PTAGE: 87 years EKG: ELECTRONIC ATRIAL PACEMAKER ELECTRONIC VENTRICULAR PACEMAKER ABNORMAL RHYTHM ECG INTERPRETA TION BASED ON A DEFAULT AGE OF 40 YEARS PREVIOUS TRACING : 10/21/2017 06.08 Since the previous tracing, no significant change not ed DOCTOR: Venu Shepard Interpretating Date/Time 10/21/2017 14:09:16
--- NOTE | 2017-10-21 14:24 | TR ---
Date Performed: 10/21/2017 Time Performed: 13:28:14 DOCTOR: Ponce Calvert DRUG LIST: CLINICAL HISTORY: ANGINA REASON FOR TEST: REASON FOR ENDING: OBSERVATION: CONCLUSION: COMMENTS: Lexiscan stress test was performed under standard four minute protocol. Radionuclide was injected one minute prior to ending the test. No electrocardiographic abormalities were present t o suggest ischemia. Nuclear imaging and interpretation are pending.
[2017-10-21] MEDS: DILTIAZEM-CD 180 MG CAP ER PO SCH (14:44)
[2017-10-21] MEDS: ATENOLOL/CHLORTHALIDONE 50/25 TAB PO SCH (14:44)
--- NOTE | 2017-10-21 15:19 | RADRPT ---
EXAM DATE/TIME: 10/21/2017 13:07 [place] COMPARISON: No previous studies available for comparison. INDICATIONS : Substernal chest pain. Angina. DOSE: 25.2 mCi Tc99m Myoview at stress. 8.5 mCi Tc99m Myoview at rest. 0.4 mg Lexiscan STRESS SYMPTOMS: Chest pressure, head pressure. EJECTION FRACTION: > 70% MEDICAL HISTORY : Myocardial infarction. Hypertension. Hernia, hiatal. Ramires's esophagus. SURGICAL HISTORY : Pacemaker. Prostatectomy. Cholecystectomy. ENCOUNTER: Initial ACUITY: 1 day PAIN SCALE: 3/10 LOCATION: Substernal chest TECHNIQUE: The patient underwent pharmacologic stress with infusion of prescribed dose. Continuous ECG tracing was monitored during stress. Gated SPECT imaging was performed after stress and conventional SPECT i maging was performed at rest. The examination was performed on a SPECT/CT scanner, both attenuation and non-corrected datasets were reviewed. FINDINGS: DISTRIBUTION: The maximum perfused segment at stress is in the anterior wall. PERFUSION STUDY: There is decreased activity seen in the septal portion of the apex on stress images compared to the r est images in the order of 20% which is borderline. GATED STUDY: There is intact wall motion and thickening without hypokinetic or dyskinetic segments. CONCLUSION: Borderline ischemia at the septal region of the apex. RISK CATEGORY: Low (<1% Annual Mortality Rate) Clive Arreaga MD on October 21, 2017 at 15:11 Board Certified Radiologist. This report was verified electronically.
[2017-10-21] MEDS ORDERED: ACETAMINOPHEN 325 MG TAB PO PRN ×2 (16:00)
[2017-10-21] MEDS ORDERED: LACTULOSE SYRUP 20 GM/30 ML CUP PO PRN (16:00)
[2017-10-21] MEDS ORDERED: ONDANSETRON HCL 4 MG/2 ML VIAL IVP PRN (16:00)
[2017-10-21] MEDS ORDERED: BISACODYL 10 MG SUPP RECTAL PRN (16:00)
[2017-10-21] MEDS ORDERED: MORPHINE SULFATE 2 MG/ML SYRINGE IV PUSH PRN ×2 (16:00)
[2017-10-21] MEDS ORDERED: METOCLOPRAMIDE HCL 10 MG/2 ML VIAL IV PUSH PRN (16:00)
[2017-10-21] MEDS ORDERED: NALOXONE HCL 0.4 MG/ML AMP IV PUSH PRN (16:00)
[2017-10-21] MEDS ORDERED: SENNOSIDES 8.6 MG TAB PO PRN (16:00)
[2017-10-21] MEDS ORDERED: MAGNESIUM HYDROXIDE SUSP 30 ML CUP PO PRN (16:00)
[2017-10-21] MEDS ORDERED: oxyCODONE/ACETAMINOPHEN 5 MG/325 MG TAB PO PRN (16:00)
[2017-10-21] MEDS: amLODIPine BESYLATE 5 MG TAB PO SCH (17:18)
[2017-10-21 17:57] LABS: TROPONIN I 0.29 NG/ML (0.02-0.05)
[2017-10-21 19:26] LABS: CHOLESTEROL/ HDL RATIO 1.86 RATIO; HDL CHOLESTEROL 63.7 MG/DL (40.0-60.0)
--- NOTE | 2017-10-21 19:41 | MB ---
cc: Keith Cutler MD,Keith Mustafa,Johnson CHASE DATE: 10/21/2017 HISTORY OF PRESENT ILLNESS: Dmitri is a very pleasant 87-year-old gentleman followed by Dr. Jesse Mustafa. He has had 2 catheterizations approximately 6 years ago for chest pain. He comes in with the same type of chest pain which he rates as moderate, pressure-like tightness, currently relieved. Otherwise, denies any fevers, chills, cough, GI or bleeding, PND, orthopnea, syncope or dizziness. PAST MEDICAL HISTORY: Per history of present illness. Includes prostate cancer status post surgery, pacemaker placement, myocardial infarction, hypertension, hyperlipidemia, Ramires's esophagus, GERD, hiatal hernia, hypertension, prostatectomy, cataract surgery bilaterally, cholecystectomy. SOCIAL HISTORY: He drinks alcohol daily. Denies tobacco use. ALLERGIES: LEVOFLOXACIN, PENICILLIN G, MRI PRECAUTIONS, VALSARTAN. MEDICATIONS PRIOR TO ADMISSION: 1. Potassium. 2. Vitamin B. 3. Vitamin D3. 4. Aspirin 81 mg daily. 5. Magnesium 400 daily. 6. Atenolol Chlorthalidone 50/25 daily. 7. Isosorbide 60 daily. 8. Multivitamins. 9. Omeprazole. 10. Diltiazem extended release 180 daily. 11. Simvastatin 40 hs. 12. Plavix 75 daily. CURRENT MEDICATIONS: 1. Imdur 60 daily. 2. Magnesium oxide 400 daily. 3. Aspirin 325 daily. 4. Potassium chloride 10 mEq b.i.d. 5. Pravastatin 80 hs. 6. amlodipine 5 mg daily. 7. Cardizem-CD 180 daily. 8. Atenolol/chlorthalidone 50/25 mg daily. 9. Clopidogrel 75 mg daily. 10. Pantoprazole 40 mg daily. PHYSICAL EXAMINATION: VITAL SIGNS: Blood pressure 162/75, pulse 61, respiratory rate 20, temperature 96.2. GENERAL: He is alert and oriented x3 in no acute distress. NECK: Supple. No JVD. No bruit. CARDIOVASCULAR: S1, S2. No murmurs, rubs or gallops. LUNGS: Clear to auscultation bilaterally. ABDOMEN: Soft, nontender, nondistended with positive bowel sounds. EXTREMITIES: No lower extremity edema. IMAGING STUDIES: Myocardial perfusion study showed "borderline ischemia in the septal region of the apex". Ejection fraction is not reported. " intact wall motion thickening without hypokinetic or dyskinetic segments". Chest x-ray: No acute disease. CARDIOLOGY STUDIES: EKG: Normal sinus rhythm at 60 beats per minute. T-wave inversion V3, V4, V5, V6, lead II, III, aVF. Atrial pacing. LABORATORY DATA: White count 9.6, hemoglobin 11.3, hematocrit 35.0, platelet count 263. INR 1.1. Sodium 135, potassium 3.2, chloride 97, BUN 15, creatinine 1.09. Troponin less than 0.02 initially, but the third troponin is 0.29. CKs are all negative. Glucose 117, ALT 22, AST 19. INR is 1.1. DIAGNOSES: 1. [id number] myocardial infarction. 2. Positive myocardial perfusion study. 3. Paced atrial rhythm. 4. Anemia. 5. Hyponatremia. 6. Hypokalemia. 7. Hyperglycemia. DISCUSSION: Left heart catheterization is medically necessary due to non-ST elevation myocardial infarction, positive myocardial perfusion study, multiple cardiac risk factors. The patient consents to the procedure. We will plan on proceeding 10/22/2017. MD BELGICA Caruso/ , 07:17 PM , 07:39 PM
[2017-10-21] MEDS: PRAVASTATIN SOD 80 MG TAB PO SCH (20:40)
[2017-10-21] MEDS: POTASSIUM CHLORIDE 10 MEQ CAP PO SCH (20:41)
[2017-10-21] MEDS: DOCUSATE SODIUM 50 MG/SENNA 8.6 MG TAB PO SCH (20:41)
[2017-10-21] MEDS: SODIUM CHLORIDE 0.9% FLUSH 10 ML FLUSH IV FLUSH SCH (20:41)
[2017-10-22] VITALS (23 sets, daily range): BP systolic 117–158; BP diastolic 44–70; PULSE 59–77; RESP 16–20; TEMP 97.1–98.6; O2SAT 97–100
[2017-10-22 06:17] LABS: BASOPHIL % 0.2 % (0.0-2.0); EOSINOPHIL # 0.2 TH/MM3 (0-0.4); EOSINOPHIL % 1.6 % (0.0-4.0); HEMATOCRIT 35.3 % (39.0-51.0); HEMOGLOBIN 11.4 GM/DL (13.0-17.0); LYMPH % 13.4 % (9.0-44.0); LYMPHOCYTE # 1.3 TH/MM3 (1.0-4.8); MEAN CELL VOLUME 74.7 FL (80.0-100.0); MEAN CORPUSCULAR HEMOGLOBIN 24.3 PG (27.0-34.0); MEAN CORPUSCULAR HGB CONC 32.5 % (32.0-36.0); MEAN PLATELET VOLUME 8.2 FL (7.0-11.0); MONO % 12.1 % (0.0-8.0); MONOCYTE # 1.2 TH/MM3 (0-0.9); NEUT % 72.7 % (16.0-70.0); PLATELET COUNT 267 TH/MM3 (150-450); RED BLOOD COUNT 4.72 MIL/MM3 (4.50-5.90); RED CELL DISTRIBUTION WIDTH 16.8 % (11.6-17.2); WHITE BLOOD COUNT 9.6 TH/MM3 (4.0-11.0)
[2017-10-22] MEDS: MORPHINE SULFATE 2 MG/ML SYRINGE IV PUSH PRN ×2 (06:33→20:10)
[2017-10-22 06:41] LABS: ALBUMIN 3.3 GM/DL (3.4-5.0); ALT (GPT) 22 U/L (12-78); AST (GOT) 25 U/L (15-37); BICARBONATE 27.5 MEQ/L (21.0-32.0); BLOOD UREA NITROGEN 13 MG/DL (7-18); CALCIUM 8.7 MG/DL (8.5-10.1); CHLORIDE 97 MEQ/L (98-107); CREATININE 0.91 MG/DL (0.60-1.30); GLOMERULAR FILTRATION RATE 78 ML/MIN (>89); GLUCOSE,RANDOM 102 MG/DL (74-106); MAGNESIUM 1.7 MG/DL (1.5-2.5); PHOSPHORUS 2.7 MG/DL (2.5-4.9); SODIUM (NA) 134 MEQ/L (136-145)
[2017-10-22 06:50] LABS: ALKALINE PHOSPHATASE 47 U/L (45-117); FREE T4 0.99 NG/DL (0.76-1.46); TOTAL BILIRUBIN ADULT 0.8 MG/DL (0.2-1.0); TOTAL PROTEIN 6.6 GM/DL (6.4-8.2)
[2017-10-22] MEDS: ISOSORBIDE MONONITRATE 60 MG CR TAB (IMDUR) PO SCH (08:31)
[2017-10-22] MEDS: amLODIPine BESYLATE 5 MG TAB PO SCH (08:31)
[2017-10-22] MEDS: PANTOPRAZOLE SOD 40 MG DELAYED RELEASE TAB PO SCH (08:31)
[2017-10-22] MEDS: DILTIAZEM-CD 180 MG CAP ER PO SCH (08:31)
[2017-10-22] MEDS: CLOPIDOGREL 75 MG TAB PO SCH ×2 (08:31→08:45)
[2017-10-22] MEDS: POTASSIUM CHLORIDE 10 MEQ CAP PO SCH ×2 (08:31→21:50)
[2017-10-22] MEDS: MAGNESIUM OXIDE 400 MG TAB PO SCH (08:31)
[2017-10-22] MEDS: DOCUSATE SODIUM 50 MG/SENNA 8.6 MG TAB PO SCH ×2 (08:32→21:00)
[2017-10-22] MEDS: ASPIRIN 325 MG TAB PO SCH ×2 (08:32→08:45)
[2017-10-22] MEDS: SODIUM CHLORIDE 0.9% FLUSH 10 ML FLUSH IV FLUSH SCH ×2 (08:32→21:52)
[2017-10-22] MEDS: ATENOLOL/CHLORTHALIDONE 50/25 TAB PO SCH (08:45)
[2017-10-22] MEDS ORDERED: HEPARIN-NS/PF FLUSH BAG 2,000 ML IV FLUSH ONE (08:56)
[2017-10-22] MEDS ORDERED: MIDAZOLAM HCL 2 MG/2 ML VIAL ONE (08:56)
[2017-10-22] MEDS ORDERED: ATENOLOL/CHLORTHALIDONE 50/25 TAB PO SCH (09:00)
[2017-10-22] MEDS ORDERED: DILTIAZEM-CD 180 MG CAP ER PO SCH (09:00)
[2017-10-22] MEDS ORDERED: HEPARIN SODIUM - IV 10,000 UNITS/10 ML VIAL ONE (09:20)
[2017-10-22] MEDS ORDERED: CLOPIDOGREL 300 MG TAB ONE (09:33)
[2017-10-22] MEDS ORDERED: CLOPIDOGREL 300 MG TAB PO ONE (09:45)
[2017-10-22] MEDS ORDERED: MISC INFORMATION XX ONE ×2 (09:45→10:00)
[2017-10-22] MEDS ORDERED: SODIUM CHLORIDE 0.9% FLUSH 10 ML FLUSH IV FLUSH PRN ×2 (09:45→10:00)
--- NOTE | 2017-10-22 09:45 | CATHPROC ---
[employer] HIS Report Study Information Study Number Admission Scheduled Start Study Start [id number] Oct 21 2017 3:58PM 10/22/2017 Oct 22 2017 8:43AM [place] Service Cardiac Catheterization Admit Source Facility Department Emergency department [facility] - [facility] Physician and Clinical Staff Initial Keith Tijerina Student Assistance Counselor Liliana Marquez RN Student Assistance Counselor Mateus, Shaila Recorder Donna Linares,RT(R) (BS) Scrub Mary Hernández,CHANNING TECH2 Procedures Performed Procedure Location (Site) Vessel Name Coronary Angiograms LCA Left Coronary L Heart Cath LV Gram-hand inj. LV LV Ventricle Stent DIAG1 Prox Left Coronary Wire insertion Fem Art (right) Femoral Art Equipment Time Diamond Wheel Molder Description Size Mfg Part Number Used/Scraped [id number] 09:21 [employer] WIRE, ASAHI PROWATER 180CM 180CM Used *[id number] TRANSDUCER, TRUWAVE [id number] 08:44 SMITH LARA * Used W/STOCKCOCK *[id number] [id number] *[id number] [id number] *[id number] *[id number] 08:44 MEDLINE IND[employer]ES PACK, CCL CUSTOM * Used *[id number] 08:44 [employer] PACER PEN, SKIN DUAL W/ RULER * Used *[id number] 09:27 MEDTRONIC STENT, 2.5 8 INTEGRITY 2.5 8 Used *[id number] 09:28 [employer] MEDICAL 30 JENA INDEFLATOR Used *[id number] 09:22 [employer] MEDICAL SHEATH, FR6.5 PRELUDE 11CM FR 6.5 038ACT Used *[id number] 08:44 [employer] MEDICAL WIRE, 3MMJ .035 180CM 180CM Used *[id number] 08:44 NAMIC MANIFOLD, 4 PORT * Used *[id number] 08:44 NYCOMED OMNIPAQUE, 350 MG, 150ML 150ML [id number] Used [id number] 08:44 [employer] MEDICAL BLANKET,WARM AIR CCL * Used *[id number] 08:44 TERUMO MEDICAL SHEATH, FR4 TERUMO (10CM) FR 4 Used *[id number] Equipment Model, Serial, Lot Number and Expiration Data Description Model Number Serial Number Lot Number Expiration Date STENT, 2.5 8 INTEGRITY [id number] 12-29-2018 History: Current Medications Medication Dosage/Unit Route Frequency Last Date/Time Taken Beta Jamee Statins (any) ASA PLAVIX History: Allergies Allergy Reaction Diovan Increased Blood Pressure Levaquin MRI PRECAUTION PACEMAKER Penicillin penicillin G valsartan Increased Blood Pressure levofloxacin History: Risk Factors Family History of Hypertension Dyslipidemia Previous [place] Previous Heart Failure Premature CAD Yes Yes No Yes No Prior Valve Prior PCI Prior CABG Surgery No No No Cerebrovascular Peripheral Artery Chronic Lung On Dialysis Diabetes Disease Disease Disease No Yes No No No History: Stress Tests Stress or Imaging Studies Performed No History: Other Current Smoker Method Quit Packs a Day Years Used Pack Years No Cigarettes 60 Years Ago 1 10 10 Labs Hgb (g/dl) Hct (%) WBC (l/cumm) Platelets (thousands) 11.60-17.00 35.00-51.00 4.00-11.00 150.00-450.00 11.4 35.3 9.6 267 Glucose (mg/dl) BUN (mg/dl) Creatinine (mg/dl) BUN:Creatinine (1:x) 74.00-106.00 7.00-18.00 0.50-1.30 10.00-20.00 102 13 0.9 14.4 Na (meq/l) K (meq/l) 136.00-145.00 3.50-5.10 134 3.3 INR (PTT:PT) 0.90-1.10 1.1 CPK-MB (ng/ML) 0.50-3.60 Not Drawn Medication Medication Total Dose (Bolus/Oral) Medication Total Dosage/Unit 1% XYLOCAINE 20 mL FENTANYL 12.5 mcg HEPARIN 5500 units PLAVIX 600 mg VERSED 1 mg Medications (Bolus/Oral) Medication Time Given Dosage/Unit Administered By Reason VERSED 10/22/2017 9:09:00 AM 1 mg Shaila Ignacio 1 mg VERSED given in lab by Shaila Ignacio in Left Antecubital via Peripheral IV. 1% XYLOCAINE 10/22/2017 9:09:44 AM 20 mL Keith Cutler 20 mL 1% XYLOCAINE given in lab by Keith Cutler in Right Groin via Subcutaneous. FENTANYL 10/22/2017 9:10:23 AM 12.5 mcg Stamper, Shaila 12.5 mcg FENTANYL given in lab by Shaila Ignacio in Left Antecubital via Peripheral IV. HEPARIN 10/22/2017 9:21:02 AM 5500 units Liliana Marquez 5500 units HEPARIN given in lab by Liliana Marquez, RN in Left Antecubital via Peripheral IV. PLAVIX 10/22/2017 9:39:28 AM 600 mg Liliana Marquez 600 mg PLAVIX given in lab by Liliana Marquez, RN via Oral. Medication (Drip) Medication Time Given Dosage/Unit Concentration/Unit Diluent (ml) Solution IV Solutions 10/22/2017 8:52:04 AM 0 mL (IV) 500 NaCl .9 Patient arrived on IV Solutions in Left Antecubital via Peripheral IV. Pump/Drip Flow = 30 ml/hr usin g NaCl .9. Initial Case Assessment Cardiovascular HR Rhythm NIBP Chest Pain 60 reg 164/74 0 Edema Present Skin color Skin None Normal Warm Dry Circulatory - Right Pulses Dorsalis Pedis Femoral 2 2 Scale (0,1,2,3,4,d) Circulatory - Left Pulses Dorsalis Pedis Femoral 2 2 Scale (0,1,2,3,4,d) Circulatory - Lower Extremities Color Lower Right Color Lower Left Normal Normal Neurological State Oriented to time-place- Alert Moves all extremities person Respiration - General Respiration Rate SpO2 (%) O2 (lpm) (B/min) 10 98 2 Chronological Log Time Study Chronological Log 8:51:32 Patient arrived via Bed. 8:51:35 Patient Name, D.O.B, / Armband Verified By R.N. 8:51:36 Consent signed by the physician and the patient and verified by the [facility] staff. 8:51:40 Pre-op and post- op instructions given; patient acknowledges understanding of instructions. 8:51:54 Verbal Stimulation=2 Physical Stimulation=2 Airway=2 Respiration=2 TOTAL=8. (0=absent, 1=li mited, 2=present) 8:51:56 Presedation assessment performed by Pattern Grader RN. 8:51:59 Patient has been NPO for More than 6Hrs. 8:52:00 Skin Breakdown none per pt 8:52:01 Patient Warmer Placed on the Table. 8:52:03 Digna Prominences Protected 8:52:04 A # 20 IV was noted in the Antecubital (left). Grade = 0 8:52:04 Patient arrived on IV Solutions in Left Antecubital via Peripheral IV. Pump/Drip Flow = 30 ml/hr using NaCl .9. 8:52:05 History and physical on the chart or being dictated. Assessment: Initial Case, HR=60 BPM, Rhythm=reg, TOZH=642/74 mmhg, Chest Pain=0, Edema=None, Col or=Normal, Skin = Warm, Dry Right Pulses: Raulito Ped=2, Femoral=2 Left Pulses: Raulito Ped=2, Femoral=2 8:52:06 Lower Right Extremities: Color=Normal Lower Left Extremities: Color=Normal Neurological: State=Alert, Ox3, SCHAFFER Respiration: Resp=10 B/min, SpO2=98 %, O2=2 lpm Vitals capture started with the following parameters, Patient=Adult, Interval=5 min, Initial Pre kqtfl=321 mmHg, 8:57:44 Deflation Rate=5 mmHg, Cuff placed on Right Ankle 8:58:59 HR=60 bpm, UUVX=307/74 mmhg, SpO2=99.0 %, Resp=10 B/min, Pain=0, Yomi=10, Ochoa=2 9:00:56 Bilateral groins prepped with 2% chlorhexidine, and draped after a 3 minute waiting time. 9:03:25 HR=60 bpm, YHFF=816/75 mmhg, SpO2=99.0 %, Resp=15 B/min, Pain=0, Yomi=10, Ochoa=2 9:06:05 Pressure channel 1 zeroed. Time Out. Correct patient, correct procedure, correct physician, power injector not loaded with contrast with surgical 9:07:21 team present. Time Out Concurred by MD and individual staff in procedure. 9:08:22 HR=60 bpm, EWRM=684/76 mmhg, SpO2=98.0 %, Resp=16 B/min, Pain=0, Yomi=10, Ochoa=2 9:09:00 1 mg VERSED given in lab by Shaila Ignacio in Left Antecubital via Peripheral IV. 9:09:16 Case Start 9:09:44 20 mL 1% XYLOCAINE given in lab by Keith Cutler in Right Groin via Subcutaneous. 9:10:23 12.5 mcg FENTANYL given in lab by Shaila Ignacio in Left Antecubital via Peripheral IV. 9:10:29 Access site was Right Femoral Artery. 9:10:33 A SHEATH, FR4 TERUMO (10CM) FR 4 was advanced into the Fem Art (right) using the Percutaneou s technique. 9:10:41 Reference ECG taken A JR 4.0 INFINITI CATHETER FR 4 was advanced over a wire. OMNIPAQUE, 350 MG, 150ML 150ML was use d for 9:11:44 injections. Recorded Pressure: LV, HR=62, Condition=Condition 1 9:12:42 (Left Ventricle) LV 144/0/17 9:12:48 The LV was manually injected with 8 cc's and visualized. OMNIPAQUE, 350 MG, 150ML 150ML used . 9:13:27 HR=60 bpm, TDNX=787/69 mmhg, SpO2=96.0 %, Resp=11 B/min, Pain=0, Yomi=10, Ochoa=2 After removing the current catheter a JL 4.0 INFINITI CATHETER FR 4 was advanced over a WIRE, 3M MJ .035 180CM 9:15:22 180CM. 9:15:55 Wire removed 9:16:25 The LCA was injected and visualized at various angles. OMNIPAQUE, 350 MG, 150ML 150ML used. Recorded Pressure: Ao, HR=60, Condition=Condition 1 9:17:01 (Aorta) Ao 139/49/85 9:18:22 HR=60 bpm, WEXA=943/65 mmhg, SpO2=99.0 %, Resp=10 B/min, Pain=0, Yomi=10, Ochoa=2 9:19:14 Catheter was removed A SHEATH, FR6.5 PRELUDE 11CM FR 6.5 was exchanged in the Fem Art (right). This was necessary in order to 9:20:49 accomodate a larger catheter. 9:21:02 5500 units HEPARIN given in lab by Liliana Marquez RN in Left Antecubital via Peripheral IV. A XB 3.5 GUIDE CATHETER FR 6 was advanced over a wire. OMNIPAQUE, 350 MG, 150ML 150ML was used f or 9:23:08 injections. 9:23:23 HR=63 bpm, ZJON=520/64 mmhg, SpO2=99.0 %, Resp=12 B/min, Pain=0, Yomi=10, Ochoa=2 9:24:41 A WIRE, ASAHI PROWATER 180CM 180CM was inserted via Fem Art (right). An STENT, 2.5 8 INTEGRITY 2.5 8 Bare Metal Stent was inserted through a XB 3.5 GUIDE CATHETER FR 6 over a 9:27:14 WIRE, ASAHI PROWATER 180CM 180CM. A STENT, 2.5 8 INTEGRITY 2.5 8 was deployed using a 30 JENA INDEFLATOR at 9 atmospheres for 15 se conds in the 9:28:11 DIAG1 Prox. 9:28:26 HR=60 bpm, TLCN=582/53 mmhg, SpO2=98.0 %, Resp=18 B/min, Pain=0, Yomi=10, Ochoa=2 9:29:41 Delivery device removed 9:31:05 Catheter was removed 9:31:08 Activated Clotting Time Drawn 9:31:10 Wire removed 9:31:13 Case End 9:33:23 HR=65 bpm, QBRU=271/64 mmhg, SpO2=98.0 %, Resp=22 B/min, Pain=0, Yomi=10, Ochoa=2 9:35:02 ACT (Normal Range 90-180) = 274 9:35:16 [facility] called. Spoke to [place]. Advised a-lined needed. 9:35:34 Catheter(s) removed without difficulty 9:35:39 Sterile dressing applied to site 9:35:40 No case complications noted. 9:35:44 Bedside Report will be given. 9:35:45 Implantable Device card placed in patient's chart. 9:35:53 A Left Heart Cath was performed. 9:38:24 HR=60 bpm, IEJY=191/61 mmhg, SpO2=99.0 %, Resp=8 B/min, Pain=0, Yomi=10, Ochoa=2 9:38:34 Vitals capture stopped. 9:39:28 600 mg PLAVIX given in lab by Liliana Marquez RN via Oral. 9:40:25 Patient moved to stretcher End Study - Contrast Media Used In Study Contrast Total Opened (mL) Total Used (mL) Total Wasted (mL) Omnipaque 100 100 0 End Study - Maximum Contrast Load Max Contrast Load (mL) 389.9 End Study - Radiation Exposure Fluoro Time (minutes) 4.4 End Study - Patient Disposition Complications Transferred To Interventional Outcome No Telemetry Bed successful
[2017-10-22] MEDS ORDERED: TIROFIBAN INFUSION INJ 250 ML IV SCH (10:00)
--- NOTE | 2017-10-22 10:27 | MA ---
cc: Keith Cutler MD DATE: 10/22/2017 DATE 10/22/2017. PROCEDURE PERFORMED: Left heart catheterization, left ventriculography, coronary angiography, direct PCI with bare metal stent of the proximal mid first diagonal artery. INDICATIONS FOR PROCEDURE: Non-STEMI coronary artery disease, [place] [employer] class IV angina. PROCEDURE: The patient was brought to the cardiac catheterization laboratory, prepped and draped in the usual sterile fashion. 10 mL of 1% lidocaine was used to locally anesthetize the right common femoral artery. A 4-Nigerien sheath was placed in the right common femoral artery. 4-Nigerien JR4 and JL4 catheters were used to perform left and right coronary angiography, left ventriculography. FINDINGS: The LV pressures 140/1-2, ejection fraction is 60%, right coronary artery is dominant. The right posterolateral artery has a long diffuse 50-60% stenosis in the mid segment. Reference vessel diameter is 25 mm in diameter. I would estimate the length of probably 20 mm. The right PDA is a small 1-1.5 mm reference vessel diameter vessel with no significant obstructive disease. Left main coronary artery has an ostial 10 percent stenosis. It is a large vessel, probably 7 mm in diameter. Left circumflex vessel is a codominant vessel with mild disease in the AV groove in the proximal segment up to 20% angiographically. The first obtuse marginal vessel comes off the mid AV groove, left circumflex, has mild diffuse disease in the mid segment up to 20-30% angiographically, reference vessel diameter 2.75 mm. There are 3 small posterolateral arteries that come off the distal left circumflex vessel. Reference vessel diameter is probably 1.5-2 mm. No significant obstructive disease. The LAD is transapical. It has mild disease in the proximal mid segment up to 10-20% angiographically. The first diagonal artery is a medium-sized vessel. There is a 90% stenosis in the mid segment, just proximal to a bifurcation. Reference vessel diameter probably at least 2.5 mm. A 4-Nigerien sheath was exchanged for a 6-Nigerien sheath. 70 units per kilo of heparin was given. ACT was 274. A 6-Nigerien XB 3.5 guide, 0.014 Prowater guidewire were used to cross the mid diagonal vessel stenosis. This lesion was directly stented with a 258 Integrity stent with one inflation, 9 atmospheres for 20 seconds. The stenosis went from 90% to 0% with JOSE ANGEL-3 flow. CONCLUSION: 1. Vbc-DA-tcyjsxbjn myocardial infarction, culprit 90% mid first diagonal artery stenosis. 2. Otherwise, mild to moderate 3-vessel coronary artery disease in a right dominant system as detailed above. 3. Normal left ventricular systolic function with ejection fraction 60%. 4. Left ventricular end diastolic pressure equal to 2. 1 liter of normal saline started in the manager lab. 5. Recommend Plavix reload with 600 mg p.o. and continue 75 mg daily for 12-15 months. 6. Aspirin 162 mg daily. We will treat his lipids to NCEP guidelines. Keith Cutler MD AWC/TL , 09:39 AM , 10:26 AM
--- NOTE | 2017-10-22 14:31 | HHI.PR ---
Subjective Remarks cath done earlier- tolerated well' no complains of pain telemetry in sinus rhythm Objective Vitals Vital Signs Date Time Temp Pulse Resp B/P (MAP) Pulse Ox O2 Delivery O2 Flow Rate FiO2 10/22/17 13:16 67 10/22/17 12:00 60 10/22/17 11:12 98 Room Air 10/22/17 11:12 97.1 60 16 117/60 (79) 98 127/57 (80) 10/22/17 11:00 61 10/22/17 10:00 59 10/22/17 09:58 100 Room Air 10/22/17 09:58 60 16 135/66 (89) 100 131/46 (74) Manual Cuff/Palpation 10/22/17 08:34 21 10/22/17 08:00 98 Room Air 10/22/17 08:00 97.7 61 20 144/66 (92) 98 10/22/17 07:55 60 10/22/17 06:00 134/62 (86) 10/22/17 04:00 Room Air 10/22/17 04:00 97.4 60 18 158/70 (99) 99 10/22/17 03:55 75 10/22/17 00:00 Room Air 10/21/17 22:54 97.2 60 18 155/71 (99) 97 10/21/17 21:45 96 10/21/17 20:20 75 10/21/17 19:51 97.8 59 16 150/60 (90) 99 10/21/17 16:00 96.2 61 20 162/75 (104) 100 10/21/17 15:56 21 10/21/17 15:54 60 I/O 10/21/17 10/21/17 10/21/17 10/22/17 10/22/17 10/22/17 07:00 15:00 23:00 07:00 15:00 23:00 Intake Total 0 ml Output Total 0 ml Balance 0 ml Intake Oral 0 ml Output Urine Total 0 ml # Voids 1 # Bowel Movements 0 Result Diagram: 10/22/1743910/22/17439 Imaging Last Impressions Chest X-Ray 10/21/17 0634 Signed Impressions: Service Date/Time: Saturday, October 21, 2017 06:41 - CONCLUSION: No acute disease. Gurvinder Mcdonough MD Myocardial Perfusion Scan Nuc Med 10/21/17 0000 Signed Impressions: Service Date/Time: Saturday, October 21, 2017 13:07 - CONCLUSION: Borderline ischemia at the septal region of the apex. RISK CATEGORY: Low (<1%% Annual Mortality Rate) Clive Arreaga MD Objective Remarks awake and alert anicteric lungs- no rales regular rhythm abdomen soft nontender right groin= sheath in place good peripheral pulses neuro exam- unremarkable Procedures 10/22- cadiac catheterization A/P Assessment and Plan 87 years old male with knwon CAD Itd-VW-sirozenay myocardial infarction S/P stent Hypertension - Plavix + ASA - Imdur/Amlodipine - statins- LFTs good - lipid panel in am DM type 2 - ff blood sugars - A1C pending Hypokalemia - KCL 10 meq po bid - give extra 25 meq po x 1 now BMP in am History or chronic back pain -states takes Percocet 5/325 mg prn for pain PCP- Jus Mar MD Oct 22, 2017 14:31
[2017-10-22] MEDS ORDERED: POTASSIUM BICARBONATE 25 MEQ EFFERVESCENT TAB PO ONE (14:45)
[2017-10-22] MEDS: oxyCODONE/ACETAMINOPHEN 10 MG/325 MG TAB PO PRN ×2 (17:22→23:29)
[2017-10-22] MEDS ORDERED: SODIUM CHLORIDE 0.9% FLUSH 10 ML FLUSH IV FLUSH SCH (21:00)
[2017-10-22] MEDS: PRAVASTATIN SOD 80 MG TAB PO SCH (21:50)
[2017-10-23] VITALS (17 sets, daily range): BP systolic 146–152; BP diastolic 71–75; PULSE 60–92; RESP 16–20; TEMP 97–97.4; O2SAT 96–97
[2017-10-23 03:56] LABS: AUTOMATED NEUTROPHIL # 8.7 TH/MM3 (1.8-7.7); BASOPHIL % 0.4 % (0.0-2.0); EOSINOPHIL # 0.1 TH/MM3 (0-0.4); EOSINOPHIL % 0.5 % (0.0-4.0); HEMATOCRIT 33.4 % (39.0-51.0); HEMOGLOBIN 10.8 GM/DL (13.0-17.0); LYMPHOCYTE # 1.1 TH/MM3 (1.0-4.8); MEAN CELL VOLUME 73.6 FL (80.0-100.0); MEAN CORPUSCULAR HEMOGLOBIN 23.9 PG (27.0-34.0); MEAN CORPUSCULAR HGB CONC 32.4 % (32.0-36.0); MEAN PLATELET VOLUME 7.5 FL (7.0-11.0); MONO % 9.6 % (0.0-8.0); NEUT % 79.5 % (16.0-70.0); PLATELET COUNT 268 TH/MM3 (150-450); RED BLOOD COUNT 4.53 MIL/MM3 (4.50-5.90); RED CELL DISTRIBUTION WIDTH 16.9 % (11.6-17.2); WHITE BLOOD COUNT 10.9 TH/MM3 (4.0-11.0)
[2017-10-23 04:12] LABS: BICARBONATE 28.9 MEQ/L (21.0-32.0); CALCIUM 8.6 MG/DL (8.5-10.1); CREATININE 0.94 MG/DL (0.60-1.30)
[2017-10-23 04:15] LABS: CHOLESTEROL/ HDL RATIO 1.96 RATIO; HDL CHOLESTEROL 56.9 MG/DL (40.0-60.0)
[2017-10-23] MEDS ORDERED: IOHEXOL 350 MG/ML 100 ML BTL (for Cath Lab) OTHER ONE (07:00)
[2017-10-23] MEDS ORDERED: LEVA500T33 PO (08:48)
[2017-10-23] MEDS: DOCUSATE SODIUM 50 MG/SENNA 8.6 MG TAB PO SCH (09:00)
[2017-10-23] MEDS ORDERED: CLOPIDOGREL 75 MG TAB PO SCH (09:00)
[2017-10-23] MEDS ORDERED: ASPIRIN 81 MG CHEW TAB PO SCH (09:00)
[2017-10-23] MEDS: ISOSORBIDE MONONITRATE 60 MG CR TAB (IMDUR) PO SCH (09:28)
[2017-10-23] MEDS: POTASSIUM CHLORIDE 10 MEQ CAP PO SCH (09:29)
[2017-10-23] MEDS: PANTOPRAZOLE SOD 40 MG DELAYED RELEASE TAB PO SCH (09:30)
[2017-10-23] MEDS: DILTIAZEM-CD 180 MG CAP ER PO SCH (09:31)
[2017-10-23] MEDS: ATENOLOL/CHLORTHALIDONE 50/25 TAB PO SCH (09:31)
[2017-10-23] MEDS: amLODIPine BESYLATE 5 MG TAB PO SCH (09:33)
[2017-10-23] MEDS: MAGNESIUM OXIDE 400 MG TAB PO SCH (09:33)
[2017-10-23] MEDS: SODIUM CHLORIDE 0.9% FLUSH 10 ML FLUSH IV FLUSH SCH (09:35)
--- NOTE | 2017-10-23 10:27 | HHI.PR ---
Subjective Remarks Pt feeling a lot better. Denies any CP/SOB/N/V has been ambulating in room. Discussed w RN, no concerns Objective Vitals Vital Signs Date Time Temp Pulse Resp B/P (MAP) Pulse Ox O2 Delivery O2 Flow Rate FiO2 10/23/17 09:00 74 10/23/17 08:12 92 10/23/17 07:56 97.4 67 18 146/72 (96) 96 10/23/17 07:54 67 10/23/17 07:53 96 Room Air 10/23/17 06:00 66 10/23/17 05:00 80 10/23/17 04:14 68 16 151/71 (97) 96 10/23/17 04:00 68 10/23/17 03:00 63 10/23/17 02:00 60 10/23/17 01:00 62 10/23/17 00:00 60 10/22/17 23:00 77 16 140/62 (88) 98 10/22/17 23:00 63 10/22/17 22:00 62 10/22/17 21:00 60 10/22/17 20:00 98.6 67 16 130/70 (90) 97 Arterial Line 10/22/17 20:00 60 10/22/17 20:00 97 Room Air 10/22/17 19:00 63 10/22/17 18:00 60 10/22/17 17:21 98 21 10/22/17 17:00 62 10/22/17 16:00 64 10/22/17 15:15 98.0 64 16 125/60 (81) 98 130/44 (72) 10/22/17 15:15 98 Room Air 10/22/17 15:00 66 10/22/17 14:00 60 10/22/17 13:16 67 10/22/17 12:00 60 10/22/17 11:12 98 Room Air 10/22/17 11:12 97.1 60 16 117/60 (79) 98 127/57 (80) 10/22/17 11:00 61 I/O 10/22/17 10/22/17 10/22/17 10/23/17 10/23/17 10/23/17 07:00 15:00 23:00 07:00 15:00 23:00 Intake Total 0 ml 960 ml 240 ml Output Total 0 ml 500 ml 400 ml Balance 0 ml 460 ml -160 ml Intake Oral 0 ml 960 ml 240 ml Output Urine Total 0 ml 500 ml 400 ml # Bowel Movements 0 0 Result Diagram: 10/23/17 0352 10/23/17 0352 Imaging Last Impressions Chest X-Ray 10/21/17 0634 Signed Impressions: Service Date/Time: Saturday, October 21, 2017 06:41 - CONCLUSION: No acute disease. Gurvinder Mcdonough MD Myocardial Perfusion Scan Nuc Med 10/21/17 0000 Signed Impressions: Service Date/Time: Saturday, October 21, 2017 13:07 - CONCLUSION: Borderline ischemia at the septal region of the apex. RISK CATEGORY: Low (<1%% Annual Mortality Rate) Clive Arreaga MD Objective Remarks awake and alert lungs-clear to auscultation, no wheezing regular rhythm abdomen soft nontender neuro exam- unremarkable Moves extremities with no difficulty. Procedures 10/22- cadia catheterization A/P Assessment and Plan 87 years old male with knwon CAD Uqp-SH-xvbgnybth myocardial infarction S/P stent Hypertension Status post cardiac cath showing 90% mid first diagonal artery stenosis. Mild to moderate three-vessel coronary artery disease. - Plavix 75 mg daily + ASA 162 mg daily -Continue Imdur/Amlodipine - statins- LFTs good DM type 2 - ff blood sugars - A1C 6.0 Hypokalemia Replace as needed History or chronic back pain -states takes Percocet 5/325 mg prn for pain Discharge Planning Anticipate discharge later today or tomorrow pending cardiac clearance. Ayanna Smith MD Oct 23, 2017 10:27
[2017-10-23] MEDS ORDERED: ASPI81 PO (10:29)
[2017-10-23] MEDS ORDERED: AMLO5 PO (10:29)
[2017-10-23] MEDS ORDERED: LEVOFLOXACIN 500 MG TAB PO ONE (11:00)
== END 2017-10-23 13:00 | disposition home or self-care (01) | DRG 249 ==
LOC: NEPC 06:08 → NEDA 07:56 → NEPGCP 09:36 → OBSVTOIN 15:58 → N04B 22:49 → HCIS 10-22 09:45
PROVIDERS: ADMIT Hospitalist; ATTEND Hospitalist
PROC: 02703DZ Dilation of Coronary Artery, One Artery with Intraluminal Device, Percutaneous Approach (ICD-10-PCS; principal; 2017-10-22)
PROC: 4A023N7 Measurement of Cardiac Sampling and Pressure, Left Heart, Percutaneous Approach (ICD-10-PCS; 2017-10-22)
PROC: B2111ZZ Fluoroscopy of Multiple Coronary Arteries using Low Osmolar Contrast (ICD-10-PCS; 2017-10-22)
PROC: B2151ZZ Fluoroscopy of Left Heart using Low Osmolar Contrast (ICD-10-PCS; 2017-10-22)
DX: I21.4 Non-ST elevation (NSTEMI) myocardial infarction (principal); E11.65 Type 2 diabetes mellitus with hyperglycemia; D64.9 Anemia, unspecified; K57.92 Diverticulitis of intestine, part unspecified, without perforation or abscess without bleeding; E87.1 Hypo-osmolality and hyponatremia; I25.10 Atherosclerotic heart disease of native coronary artery without angina pectoris; I10 Essential (primary) hypertension; I25.2 Old myocardial infarction; E78.5 Hyperlipidemia, unspecified; K21.9 Gastro-esophageal reflux disease without esophagitis; E87.6 Hypokalemia; M54.9 Dorsalgia, unspecified; G89.29 Other chronic pain; H91.90 Unspecified hearing loss, unspecified ear; Z82.49 Family history of ischemic heart disease and other diseases of the circulatory system; Z85.46 Personal history of malignant neoplasm of prostate; Z87.891 Personal history of nicotine dependence; Z88.0 Allergy status to penicillin; Z88.1 Allergy status to other antibiotic agents; Z95.0 Presence of cardiac pacemaker
CPT/HCPCS: 71045; 78452; 80048; 80053; 80061; 82550; 83036; 83735; 84100; 84439; 84443; 84484; 85002; 85025; 85610; 85730; 93005; 93017; 93458; 99152; 99153; 99285; A9502; C1769; C1876; C1887; C1893; J1644; J2250; J2270; J2785; J3010; Q9967